=== PATIENT | female | born 1960 | race Caucasian/White ===

== ENCOUNTER 2024-11-01 17:13 | Emergency (ER) | payer BC, SELFPAY ==
--- NOTE | ~2024-11-01 | CT_ITS ---
CTA brain carotid Ordering provider: Christian Tompkins MD History: . headache with vision . Comparison: None. Technique: CT angiogram head and neck was performed following timed intravenous injection of contrast . Thin slice axial images and reformatted coronal images were obtained. Three dimensional reformatted images of the brain were also obtained using a [employer] workstation. DLP: 1001.7 mGy-cm FINDINGS: HEAD: --ANTERIOR AND MIDDLE CEREBRAL ARTERIES AND BRANCHES: Normal caliber and contour. --INTERNAL CAROTID ARTERIES: Normal caliber and contour. --BASILAR ARTERY AND BRANCHES: Normal caliber and contour. No atheromatous disease. --POSTERIOR CEREBRAL ARTERIES: Normal caliber and contour --POSTERIOR COMMUNICATING ARTERIES: Not well visualized likely related to congenital absence or small size. --ANEURYSM: None visualized. --BRAIN: Please refer to report of CT head performed the same day. --BONES AND SUPERFICIAL SOFT TISSUES: Please refer to report of CT head performed the same day. --PARANASAL SINUSES AND MASTOIDS: Please refer to report of CT head done the same day. NECK: --RIGHT CERVICAL CAROTID SYSTEM: Normal caliber and contour. Percent stenosis per NASCET criteria is 0% No carotid dissection. --LEFT CERVICAL CAROTID SYSTEM: Trace calcified atheromatous disease of the carotid bulb without sign ificant stenosis. Percent stenosis per NASCET criteria is 0% No carotid dissection. --VERTEBRAL ARTERIES: Normal caliber and contour. --VISUALIZED AORTIC ARCH AND BRANCHING VESSELS: Normal caliber and contour. No significant atheromato us disease. --SOFT TISSUES: Unremarkable. --CERVICAL SPINE: No significant degenerative disease IMPRESSION: 1. Normal CTA head and neck. Percent stenosis per NASCET criteria is 0%. 2. No large vessel occlusion. Reviewed, dictated and finalized at location A.
--- NOTE | ~2024-11-01 | XR_ITS ---
CHEST RADIOGRAPH CLINICAL HISTORY: cva? . COMPARISON: None available TECHNIQUE: Single portable view of the chest. FINDINGS The cardiomediastinal silhouette is unremarkable. The lungs are clear. IMPRESSION: No focal infiltrate or effusion. Reviewed, dictated and finalized at location A.
--- NOTE | ~2024-11-01 | CT_ITS ---
History: Code stroke PROCEDURE: CT head without contrast. COMPARISON: None TECHNIQUE: Axial imaging of the head performed from the skull base to the vertex without IV contrast. Sagittal a nd coronal reformations obtained. DLP: 681 mGy-cm FINDINGS: The ventricles are normal in size, shape and position. There is no mass, mass effect or midline shift. There is no abnormal extra-axial fluid collection or intracranial hemorrhage. Visualized paranasal sinuses are clear. The mastoid air cells are well aerated. No acute displaced fractures within the overlying cranium. Impression: No acute intracranial hemorrhage or suspicious mass effect. These findings were given to Dr. Tompkins at 5:34 PM on 11/01/2024 Reviewed, dictated and finalized at location A. Impression: No acute intracranial hemorrhage or suspicious mass effect. These findings were given to Dr. Tompkins at 5:34 PM on 11/01/2024
[2024-11-01 17:21] VITALS: BP 122/74; PULSE 59; RESP 16; TEMP 36.4; O2SAT 99
--- NOTE | 2024-11-01 17:24 | ECG_ITS ---
Test Date: 2024-11-01 18:55:11 Measurements Intervals [place] Rate: 54 P: 59 ME: 198 QRS: 33 QRSD: 94 T: 29 QT: 442 QTc: 422 Interpretive Statements SINUS BRADYCARDIA BORDERLINE ECG No previous ECG available for comparison Electronically Signed On 11-01-2024 19:45:46 CDT by Jared Tatum D.O.
--- NOTE | 2024-11-01 17:25 | ED_ITS ---
HPI - Neuro Symptoms/Deficit General Chief Complaint: Suspected CVA <Kev Yang APRN - Last Filed: 11/01/24 17:29> Stated Complaint: lkw 1400 blurry r eye vision RLQ, dizzy, R arm jelena <Kev Yang APRN - Last Filed: 11/01/24 17:29> Time Seen by Provider: 11/01/24 17:42 <Kev Yang APRN - Last Filed: 11/01/24 17:29> 64-year-old female presents to the ER complaining of blurry vision, headaches, right arm tingling, dizziness approximately last 2 hours. Patient's symptoms started as poorly vision in her right eye she reported as revision appeared to be like she was under water after that the vision improved and she developed a headache throughout her entire head. She also reports feeling dizzy and feels right arm tingling. Patient denies any arm weakness, slurred speech, facial droop, chest pain, breathing problems, nausea, vomiting, lightheadedness, loss of consciousness or any other symptoms. 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 Patient last on normal proximally 2 hours ago. Focused HPI: GENERAL: Well-appearing, well-nourished, and in no acute distress. HEAD: Normocephalic, atraumatic. EYES: Extraocular movements intact. Pupils PERRLA. CHEST: Clear to auscultation. ?No respiratory distress. HEART: Regular rate and rhythm.? NEURO: ?Alert and oriented x4. No obvious focal neurological abnormalities. No pronator drift, program host strength 5/5 equal bilaterally. No facial droop, speech is clear. No limb ataxia. Leg strength 5/5 equal bilaterally. Cranial nerve 2-12 grossly intact. Patient screened in triage and initial orders placed.? ?Additional care and disposition to be based upon?diagnostic testing and treatment. <Kev Yang APRN - Last Filed: 11/01/24 17:29> History of Present Illness HPI Narrative: Agree with HPI. <Christian Tompkins MD - Last Filed: 11/01/24 21:35> Related Data Allergies/Adverse Reactions: Allergies Allergy/AdvReac Type Severity Reaction Status Date / Time No Known Allergies Allergy Verified 11/01/24 19:47 <Kev Yang APRN - Last Filed: 11/01/24 17:29> Review of Systems 2 Review of Systems: All systems reviewed & are unremarkable except as noted in HPI and below <Christian Tompkins MD - Last Filed: 11/01/24 21:35> Constitutional: Constitutional: Reports no additional constitutional complaints <Christian Tompkins MD - Last Filed: 11/01/24 21:35> Cardiovascular: Cardiovascular: Reports no additional cardiovascular complaints <Christian Tompkins MD - Last Filed: 11/01/24 21:35> Respiratory: Respiratory: Reports no additional respiratory complaints < Christian Tompkins MD - Last Filed: 11/01/24 21:35> Neurologic: Reports system reviewed and no additional complaints, except as documented <Christian Tompkins MD - Last Filed: 11/01/24 21:35> PMFSH Past Medical History Medical History: Medical History (Updated 11/01/24 @ 21:35 by Christian Tompkins MD) Migraine headache <Kev Yang APRN - Last Filed: 11/01/24 17:29> Surgical History Surgical History: Surgical History (Updated 11/01/24 @ 21:32 by Christian Tompkins MD) No history of previous surgery <Kev Yang APRN - Last Filed: 11/01/24 17:29> Social History Social History: Social History (Updated 11/01/24 @ 21:32 by Christian Tompkins MD) Smoking status: Never smoker Alcohol intake: never <Kev Yang APRN - Last Filed: 11/01/24 17:29> Exam 2 Narrative: GENERAL: Well-appearing, well-nourished, and in no acute distress. HEAD: Normocephalic, atraumatic. EYES: PERRL and EOMI. ENT: Mucous membranes moist. CHEST: Clear to auscultation. No respiratory distress. HEART: Regular rate and rhythm. Normal peripheral pulses. ABDOMEN: Soft, nontender, nondistended. EXTREMITIES: Normal range of motion. No edema. SKIN: Warm, dry, no rash. NEURO: No focal deficits. No upper lower extremity drift. No limitation testing. Clear speech. Alert and oriented x3. PSYCH: Normal mood and affect. <Christian Tompkins MD - Last Filed: 11/01/24 21:35> Course Course Emergency Course: Patient felt of had a migraine headache that is resolved. Discussed with neurology. Recommend CTA. No aneurysm or large vessel occlusion. Appropriate for discharge home. Patient without any risk factors. <Christian Tompkins MD - Last Filed: 11/01/24 21:35> Vital Signs Vital signs: Vital Signs Temperature 97.6 F 11/01/24 17:21 Pulse Rate 59 L 11/01/24 17:21 Respiratory Rate 16 11/01/24 17:21 Blood Pressure 122/74 11/01/24 17:21 Pulse Oximetry 99 11/01/24 17:21 Temperature 97.6 F 11/01/24 17:21 Pulse Rate 57 L 11/01/24 19:44 Respiratory Rate 12 11/01/24 19:44 Blood Pressure 124/81 11/01/24 19:44 Pulse Oximetry 98 11/01/24 19:44 <Kev Yang APRN - Last Filed: 11/01/24 17:29> Vital Signs Temperature 97.6 F 11/01/24 17:21 Pulse Rate 59 L 11/01/24 17:21 Respiratory Rate 16 11/01/24 17:21 Blood Pressure 122/74 11/01/24 17:21 Pulse Oximetry 99 11/01/24 17:21 Temperature 97.6 F 11/01/24 17:21 Pulse Rate 57 L 11/01/24 19:44 Respiratory Rate 12 11/01/24 19:44 Blood Pressure 124/81 11/01/24 19:44 Pulse Oximetry 98 11/01/24 19:44 <Christian Tompkins MD - Last Filed: 11/01/24 21:35> MDM - Neuro Symptoms/Deficit Lab Data Result diagrams: 11/01/24 17:56 11/01/24 17:56 <Kev Yang APRN - Last Filed: 11/01/24 17:29> Labs: Lab Results 11/01/24 Range/Units 17:56 WBC 5.1 (4.5-10.0) K/mm3 RBC 4.37 (4.2-5.4) M/mm3 Hgb 13.4 (12.0-15.0) g/dL Hct 40.6 (37.0-47.0) % MCV 92.9 (80-100) fl MCH 30.7 (26-34) pg MCHC 33.0 (32-36) g/dl RDW 12.4 (11.5-14.5) % Plt Count 217 (150-375) k/mm3 MPV 9.6 (7.4-10.4) fl Immature Gran % (Auto) 0.2 (0-0.5) % Neut % (Auto) 50.4 (45.5-73.1) % Lymph % (Auto) 37.3 (18.3-44.2) % [place] % (Auto) 6.4 (2.6-8.5) % Eos % (Auto) 4.3 (0-4.4) % Baso % (Auto) 1.4 H (0.2-1.2) % Lymph # (Auto) 1.91 (0.9-3.2) K/mm3 [place] # (Auto) 0.3 (0.1-0.6) K/mm3 Eos # (Auto) 0.2 (0-0.3) K/mm3 Baso # (Auto) 0.1 (0.0-0.1) K/mm3 Abs Immat Gran (auto) 0.01 (0.00-0.031) K/mm3 Absolute Neuts (auto) 2.6 (1.3-6.7) K/mm3 Absolute Nucleated RBC 0.000 (0.0-0.012) K/mm3 Nucleated RBC % 0.0 (0.0-0.2) % PT 13.1 (11.1-14.7) Seconds INR 1.0 APTT 27.7 (22.3-36.8) Seconds Sodium 138 (137-145) mmol/L Potassium 3.9 (3.4-5.0) mmol/L Chloride 103 (98-107) mmol/L Carbon Dioxide 30 (22-30) mmol/L Anion Gap 5 (4-12) mmol/L BUN 16 (7-17) mg/dL Creatinine 0.94 (0.7-1.0) mg/dL Estim Creat Clear Calc Not Reportable Estimated GFR 60 (59 - ) Glucose 89 (65-110) mg/dL Calcium 9.1 (8.4-10.2) mg/dL Total Bilirubin 0.8 (0.2-1.3) mg/dL AST 32 (14-36) U/L ALT 18 (6-35) U/L Alkaline Phosphatase 57 (38-126) U/L Troponin I < 0.012 (0.000-0.034) ng/mL Total Protein 6.7 (6.3-8.2) g/dL Albumin 4.1 (3.5-5.1) g/dL <Kev Yang, REROLLING MACHINE OPERATOR - Last Filed: 11/01/24 17:29> Lab Results 11/01/24 Range/Units 17:56 WBC 5.1 (4.5-10.0) K/mm3 RBC 4.37 (4.2-5.4) M/mm3 Hgb 13.4 (12.0-15.0) g/dL Hct 40.6 (37.0-47.0) % MCV 92.9 (80-100) fl MCH 30.7 (26-34) pg MCHC 33.0 (32-36) g/dl RDW 12.4 (11.5-14.5) % Plt Count 217 (150-375) k/mm3 MPV 9.6 (7.4-10.4) fl Immature Gran % (Auto) 0.2 (0-0.5) % Neut % (Auto) 50.4 (45.5-73.1) % Lymph % (Auto) 37.3 (18.3-44.2) % [place] % (Auto) 6.4 (2.6-8.5) % Eos % (Auto) 4.3 (0-4.4) % Baso % (Auto) 1.4 H (0.2-1.2) % Lymph # (Auto) 1.91 (0.9-3.2) K/mm3 [place] # (Auto) 0.3 (0.1-0.6) K/mm3 Eos # (Auto) 0.2 (0-0.3) K/mm3 Baso # (Auto) 0.1 (0.0-0.1) K/mm3 Abs Immat Gran (auto) 0.01 (0.00-0.031) K/mm3 Absolute Neuts (auto) 2.6 (1.3-6.7) K/mm3 Absolute Nucleated RBC 0.000 (0.0-0.012) K/mm3 Nucleated RBC % 0.0 (0.0-0.2) % PT 13.1 (11.1-14.7) Seconds INR 1.0 APTT 27.7 (22.3-36.8) Seconds Sodium 138 (137-145) mmol/L Potassium 3.9 (3.4-5.0) mmol/L Chloride 103 (98-107) mmol/L Carbon Dioxide 30 (22-30) mmol/L Anion Gap 5 (4-12) mmol/L BUN 16 (7-17) mg/dL Creatinine 0.94 (0.7-1.0) mg/dL Estim Creat Clear Calc Not Reportable Estimated GFR 60 (59 - ) Glucose 89 (65-110) mg/dL Calcium 9.1 (8.4-10.2) mg/dL Total Bilirubin 0.8 (0.2-1.3) mg/dL AST 32 (14-36) U/L ALT 18 (6-35) U/L Alkaline Phosphatase 57 (38-126) U/L Troponin I < 0.012 (0.000-0.034) ng/mL Total Protein 6.7 (6.3-8.2) g/dL Albumin 4.1 (3.5-5.1) g/dL <Christian Tompkins MD - Last Filed: 11/01/24 21:35> Imaging Data Radiologist's impression: ITS Impressions Head CT 11/01/24 17:32 Impression: No acute intracranial hemorrhage or suspicious mass effect. These findings were given to Dr. Tompkins at 5:34 PM on 11/01/2024 Chest X-Ray 11/01/24 18:11 IMPRESSION: No focal infiltrate or effusion. Head/Neck CTA 11/01/24 21:09 IMPRESSION: 1. Normal CTA head and neck. Percent stenosis per NASCET criteria is 0%. 2. No large vessel occlusion. <Christian Tompkins MD - Last Filed: 11/01/24 21:35> ECG Data EKG #1: ECG completion date: 11/01/24 <Christian Tompkins MD - Last Filed: 11/01/24 21:35> ECG completion time: 18:55 <Christian Tompkins MD - Last Filed: 11/01/24 21:35> EKG Interpretation: bradycardia (54), sinus rhythm, no ST changes, normal QRS and normal QT <Christian Tmopkins MD - Last Filed: 11/01/24 21:35> Discharge Plan Discharge Clinical Impression: Migraine <Kev Yang APRN - Last Filed: 11/01/24 17:29> Patient Disposition: Home <Kev Yang APRN - Last Filed: 11/01/24 17:29> Condition: Stable <Kev Yang APRN - Last Filed: 11/01/24 17:29> Instructions: Migraine Headache (ED) <Kev Yang APRN - Last Filed: 11/01/24 17:29> Additional Instructions: Try to stay well hydrated at home. Please return to the emergency department if you develop worsening of your headache or a new headache which is severe, associated with vision changes, associated with neck stiffness or fever, or if it is different from any other headache that you have had before. Return to the emergency department if you develop numbness, weakness or tingling or problems with coordination, or if you develop severe nausea and vomiting and are unable to keep down fluids at home. <Kev Yang APRN - Last Filed: 11/01/24 17:29> Patient Language: Maltese <Kev Yang APRN - Last Filed: 11/01/24 17:29> Follow-up/Referrals: Thanh Valadez MD [Physician] - 1 Week UNKNOWN,DOCTOR [Primary Care Provider] - 1 Week <Kev Yang APRN - Last Filed: 11/01/24 17:29>
--- NOTE | 2024-11-01 17:26 | PC.NURSE ---
Pt. taken to CT by Odell KELLOGG as a code stroke.
[2024-11-01 18:08] LABS: Hematocrit 40.6 % (37.0-47.0); Hemoglobin 13.4 g/dL (12.0-15.0); Immature Granulocyte Percent A 0.2 % (0-0.5); Lymphocytes Absolute Auto 1.91 K/mm3 (0.9-3.2); Mean Corpuscular HGB Conc 33.0 g/dl (32-36); Mean Corpuscular Hemoglobin 30.7 pg (26-34); Mean Corpuscular Volume 92.9 fl (80-100); Nucleated Red Blood Cells Absolute Auto 0.000 K/mm3 (0.0-0.012); Nucleated Red Blood Cells Perc 0.0 % (0.0-0.2); Platelet Count Result 217 k/mm3 (150-375); Red Blood Count 4.37 M/mm3 (4.2-5.4); White Blood Count 5.1 K/mm3 (4.5-10.0)
[2024-11-01 18:13] LABS: Alanine Aminotransferase 18 U/L (6-35); Albumin Level 4.1 g/dL (3.5-5.1); Alkaline Phosphatase 57 U/L (38-126); Anion Gap 5 mmol/L (4-12); Aspartate Amino Transferase 32 U/L (14-36); Bilirubin,Total 0.8 mg/dL (0.2-1.3); Blood Urea Nitrogen 16 mg/dL (7-17); Calcium 9.1 mg/dL (8.4-10.2); Carbon Dioxide 30 mmol/L (22-30); Chloride 103 mmol/L (98-107); Estimated Glomerular Filt Rate 60; Glucose 89 mg/dL (65-110); INR 1.0; Potassium 3.9 mmol/L (3.4-5.0); Prothrombin Time 13.1 Seconds (11.1-14.7); Sodium 138 mmol/L (137-145); Total Protein 6.7 g/dL (6.3-8.2)
[2024-11-01 18:14] LABS: Partial Thromboplastin Time 27.7 Seconds (22.3-36.8)
[2024-11-01 18:25] LABS: Troponin I < 0.012 ng/mL (0.000-0.034)
--- OUTSIDE RECORDS SUMMARY | 2024-11-01 19:36 | XMS_ITS | Clinical Summary ---
Author Organization [facility] Address [address] [place] [address] Phone Care Team Providers Care Technical Project Coordinator Name Role Phone Janes Leigh MD Unavailable Janes Leigh MD Primary Care Provider [phone] Allergies No known active allergies Medications Betaine HCl 300 MG Tablet Take by mouth. Active Magnesium 400 MG Capsule Take 400 mg by mouth. Active Multivitamin-Mi nerals (multiple vitamins-minera ls) Tablet Take 1 Tablet by mouth daily. Active levothyroxine (SYNTHROID) 75 MCG Tablet Take 1 tablet by mouth once daily 90 Tablet 5 Active levothyroxine (SYNTHROID) 75 MCG Tablet Take 1 tablet by mouth once daily 90 Tablet 5 10/13/19 25 Discontinued Encounters Date Type Department Care Team Description 10/12/2024 Refill [facility] - Endocrinology - [place] [address] [place] [address] Janes Leigh MD Medication Refill from Last 3 Months Social History Tobacco Use Types Packs/Day Years Used Date Smoking Tobacco: Never Passive Smoke Exposure: Never Smokeless Tobacco: Never Tobacco Cessation:Counseling Given: No Alcohol Use Standard Drinks/Week Comments Not Currently 0 (1 standard drink = 0.6 oz pur e alcohol) Sexually Active Control Partners Comments Not Currently Male Comments Unknown Sex and Gender Information Value Date Recorded Sex Assigned at Not on file Legal Sex Female 2:36 PM CDT Gender Identity Not on file Sexual Orientation Not on file Last Filed Vital Signs Vital Sign Reading Time Taken Comments Blood Pressure 122/74 07/01/2024 8:26 AM CDT Pulse 78 07/01/2024 8:26 AM CDT Temperature 36.3 C (97.3 F) 07/01/2024 8:26 AM CDT Respiratory Rate 20 07/01/2024 8:26 AM CDT Oxygen Saturation 98% 07/01/2024 8:26 AM CDT Inhaled Oxygen Concentration - - Weight 65.8 kg (145 lb) 07/01/2024 8:26 AM CDT Height - - Body Mass Index - - Plan of Treatment Upcoming Encounters Date Type Department Care Team (Late st Contact Info) Description 01/06/2025 8:30 AM CDT Office Visit [facility] - Endocrinology [facility] [address] [place] [address] Janes Leigh MD [address] [address] Health Maintenance Due Date Last Done Comments Hepatitis C Virus (HCV) Screening 1960 Mammogram 1960 TdaP Immunization 1960 Pap Smear 02/15/1981 Cervical Cancer Screening (CCS) 02/15/1990 HPV/Cotest 02/15/1990 Cologuard 02/15/2005 Colonoscopy 02/15/2005 Colorectal Cancer Screening 02/15/2005 Immunochemical Fecal Occult Blood 02/15/2005 Pneumococcal Immunization (5 0+ years) (1 of 1 - PCV) 02/15/2010 10/29/2018 Zoster Immunization (1 of 2) 02/15/2010 SARS-COV-2 Immunization (1 - season) 2023 Influenza Immunization (#1) 2024 10/29/2018 Respiratory Syncytial Virus (RSV) Immunization (Adult) (1 - 1-dose 75+ series) 02/15/2035 Pneumococcal Immunization Combined Discontinued 2018 Hepatitis B Immunization Aged Out No longer eligible based on patient's age to complete this topic Human Papillomavirus (HPV) Immunization Aged Out No longer eligible b ased on patient's age to complete this topic Meningococcal Immunization (ACWY) Aged Out No longer eligible based on patient's age to complete this topic Rotavirus Immunization Aged Out No lo nger eligible based on patient's age to complete this topic Insurance [facility] Care Teams Technical Project Coordinator Relationship Specialty Start Date End Date Janes Leigh MD [address] [address] PCP - General Endocrinology 12/31/23 Janes Leigh MD [address] [phone] Consulting Physician Endocrinology 12/23/23
--- NOTE | 2024-11-01 19:37 | PC.NURSE ---
Assumed care of patient without receiving nurse report @ 1930.
[2024-11-01 19:38] VITALS: BP 124/81; PULSE 58; RESP 21; O2SAT 99
[2024-11-01 19:44] VITALS: BP 124/81; PULSE 57; RESP 12; O2SAT 98
[2024-11-01 22:21] VITALS: BP 108/64; PULSE 70; RESP 16; O2SAT 98
== END 2024-11-01 22:21 | disposition home or self-care (01) ==
PROVIDERS: Emergency Provider Emergency Medicine
DX: G43.909 Migraine, unspecified, not intractable, without status migrainosus (principal); R00.1 Bradycardia, unspecified; E06.3 Autoimmune thyroiditis
CPT/HCPCS: 36415; 70450; 70496; 70498; 71045; 80053; 84484; 85025; 85610; 85730; 93005; 99284; Q9967

== ENCOUNTER 2025-03-03 08:34 | Outpatient (CLI) | payer MEDICARE, SELFPAY ==
--- OUTSIDE RECORDS SUMMARY | 2025-03-03 08:52 | XMS_ITS | Patient Health Record ---
Author Organization [facility] Address [address] [place] [address] [address] [place], [place] [id number] Care Team Providers Care Post Secondary Professional Name Role Phone WAYNE PHAM Primary Care Provider Allergies No Known Allergies Reason For Referral No Information Medications Medication SIG (Take, Route, Frequency, Duration) Notes Start Date End Date Status Xanax 0.25 MG 1 tablet Orally twic e a day as needed (prn); Duration: 15 days 11/06/2017 Not-Taking Mucinex 600 MG 1 tablet as needed Orally every 12 hrs Not-Taking Antihistamine Active Premarin 1.25 MG 1 tablet Orally Once a day; Duration: 30 day(s) Not-Taking Amoxicillin 875 MG 1 tablet Orally ever y 12 hrs; Duration: 09/22/2017 Not-Taking ProAir HFA 108 (90 Base) MCG/ACT 2 puffs as needed Inhalation four times a day (qid) as needed (prn); Duration: 30 days 07/14/2020 Active FLUoxetine HCl 10 MG 1 capsule Orally On ce a day; Duration: 90 days 12/24/2018 Not-Taking Levothyroxine Sodium 88 MCG TAKE 1 TABLET BY MOUTH EVERY DAY IN THE MORNING ON AN EMPTY STOMACH; Duration: 22 Not-Taking Pristiq 50 MG 1 tablet Orally Once a day; Duration: 30 day(s) Not-Taking Immunizations Vaccine Route Administration Date Status Comme nts FLU VACCINE (6 months-64 years) Unknown 03/11/2011 Administered FLU VACCINE (18-64) FLUBLOK Unknown 02/15/2012 Administered FLU VACCINE (18-64) FLUBLOK ID Intradermal 02/29/2016 Administered FLU VACCINE (18-64) FLUBLOK IM Intramuscular 01/30/2018 Administered FLU VACCINE (18-64) FLUBLOK IM Intramuscular 01/28/2019 Administered HERPES ZOSTER-SHINGRIX IM Intramuscular 01/28/2019 Administered HERPES ZOSTER-SHINGRIX IM Intramuscular 05/31/2019 Administered PNEUMOCOCCAL- PNEUMOVAX 23 IM Intramuscular 10/06/2018 Administered Tdap - ADACEL (10-64) Unknown 02/15/2012 Administered Influenza Vaccine Unknown 02/17/2010 Administered Influenza Vaccine <<MigratedImmuniz ation>> Social History EXERCISE ASSESSMENT- Question Answer Notes -Assessment Performed: Yes Problems Problem Type SNOMED Code ICD Code Onset Dates Problem Status W/U Status Risk Notes Problem Mixed anxiety and depressive disorder (926301406) Anxiety and depression (F41.8) Active confirmed Problem Irritable bowel syndrome (05172192) IBS (irritable colon syndrome) (K58.9) Active confirmed Problem Hypothyroidism (32789835) Hypothyroidism, unspecified (E03.9) Active confirmed Problem Diverticulitis of colon (710248607) Diverticulitis of intestine without perforation or abscess without bleeding, unspecified part of intestinal tract (K57.92) Active confirmed Problem Anxiety state (265146122) Acute anxiety (F41.9) Active confirmed Plan Of Treatment Pending Test Test Name Order Date X ray : CHEST PA LATERAL 07/14/2020 Insurance Providers Payer Name Payer Address Payer Phone Subscriber Number Group Number Insured Name Patient Relationship to Insured Coverage Start Date Coverage End Date [employer] [address] [place] [phone] [id number] TREMAINE MACEDO Self - patient is the insured Medical (General) History Medical History History ICD Code Depressive disorder, not elsewhere class ified Acute UTI Unspecified hypothyroidism
--- OUTSIDE RECORDS SUMMARY | 2025-03-03 08:53 | XMS_ITS | Clinical Summary ---
Author Organization [facility] Address [address] [place] [address] Phone Care Team Providers Care Driver/Sales Workers Name Role Phone Jnaes Leigh MD Unavailable Janes Leigh MD Primary Care Provider [phone] Allergies No known active allergies Medications Betaine HCl 300 MG Tablet Take by mouth. Active Magnesium 400 MG Capsule Take 400 mg by mouth. Active Multivitamin-Min erals (multiple vitamins-mineral s) Tablet Take 1 Tablet by mouth daily. Active levothyroxine (SYNTHROID) 75 MCG Tablet Take 1 tablet by mouth once daily 90 Tablet 01/10/2025 Active Encounters Date Type Department Care Team Description 03/01/2025 Transcribe Orders [facility] Central Scheduling [address] [place] [address] Ayanna Linda, EXECUTIVE SERVICES ADMINISTRATOR, [employer] Encounter for screening mammogram for malignant neoplasm of breast (Primary Dx); Asymptomatic menopausal state 01/08/2025 Refill [facility] Endocrinology [facility] [address] [place] [address] Janes Leigh MD Medication Refill 01/07/2025 Results Follow-Up [facility] Endocrinology - [place] [address] [place] [address] Janes Leigh MD THYROID STIMULATING HORMONE (TSH), THYROXINE (T4) FREE, TRIIODOTHYRININE (T3) TOTAL 01/06/2025 8:30 AM CDT Office Visit [facility] - Endocrinology [facility] [address] [place] [address] Janes Leigh MD Hypothyroidism due to Soo thyroiditis (Primary Dx) Discharge Disposition: Discharged to home or Selfcare 01/06/2025 Travel from Last 3 Months Social History Tobacco [...] Sign Reading Time Taken Comments Blood Pressure 124/68 01/06/2025 8:29 AM CDT Pulse 86 01/06/2025 8:29 AM CDT Temperature 36.3 C (97.3 F) 01/06/2025 8:29 AM CDT Respiratory Rate 22 01/06/2025 8:29 AM CDT Oxygen Saturation 96% 01/06/2025 8:29 AM CDT Inhaled Oxygen Concentration - - Weight 65.9 kg (145 lb 3.2 oz) 01/06/2025 8:29 A M CDT Height - - Body Mass Index - - Plan of Treatment Upcoming Encounters Date Type Department Care Team (Late st Contact Info) Description 03/08/2025 1:15 PM HOMEBOUND TEACHER Appointment [facility] Mammography [address] [place] [phone] Ayanna Linda, EXECUTIVE SERVICES ADMINISTRATOR, [employer] [address] [place] [address] Discharge Disposition: Discharged to home or Selfcare 03/08/2025 1:30 PM HOMEBOUND TEACHER Appointment [facility] Mammography [address] [place] [address] Ayanna Linda, EXECUTIVE SERVICES ADMINISTRATOR, [employer] [address] [place] [address] Discharge Disposition: Discharged to home or Selfcare 04/12/2025 8:30 AM HOMEBOUND TEACHER Office Visit [facility] - Endocrinology - [place] [address] [place] [address] Janes Leigh MD [address] [phone] Health Maintenance Due Date Last Done Comments DEXA Bone Density 1960 Hepatitis C Virus (HCV) Screening 1960 Mammogram 1960 Pap Smear 02/15/1981 Cervical Cancer Screening (CCS) 02/15/1990 HPV/Cotest 02/15/1990 Cologuard 02/15/2005 Colonoscopy 02/15/2005 Colorectal Cancer Screening 02/15/2005 Immunochemical Fecal Occult Blood 02/15/2005 Pneumococcal Immunization (5 0+ years) (1 of 1 - PCV) 02/15/2010 10/29/2018 Zoster Immunization (1 of 2) 02/15/2010 Influenza Immunization (#1) 2024 10/29/2018 SARS-COV-2 Immunization (1 - season) 2024 Welcome to Medicare (IPPE) [id number] 01/29/2025 Respiratory Syncytial Virus (RSV) Immunization (Adult) (1 - 1-dose 75+ series) 02/15/2035 Pneumococcal Immunization Combined Discontinued 2018 TdaP Immunization Completed 01/17/2025 Hepatitis B Immunization Aged Out No longer [...] on patient's age to complete this topic Procedures Procedure Name Priority Date/Time Associated Diagnosis Comments TRIIODOTHYRININE (T3) TOTAL Routine 01/06/2025 9:12 AM CDT Hypothyroidism due to Soo thyroiditis THYROXINE (T4) FREE Routine 01/06/2025 9 :12 AM CDT Hypothyroidism due to Soo thyroiditis THYROID STIMULATING HORMONE (TSH) Routine 01/06/2025 9:12 AM CDT Hypothyroidism due to Soo thyroiditis from Last 3 Months Results * THYROXINE (T4) FREE (01/06/2025 9:12 AM CDT) T4 FREE 1.1 0.7 - 1.9 ng/dL 01/06/2025 10:56 AM CDT [facility] Blood Venipuncture / Unknown 01/06/2025 9:12 AM CDT 01/06/2025 10:12 AM CDT us Janes Leigh MD CHEMISTRY ORDERABLES Final Resul t Performing Organization Address City/[facility]/ZIP Co de Phone Number [facility] [address] [place] [address] * THYROID STIMULATING HORMONE (TSH) (01/06/2025 9:12 AM CDT) TSH 2.233 0.300 - 5.000 mIU/L 01/06/2025 10:56 AM CDT [facility] Blood Venipuncture / Unknown 01/06/2025 9:12 AM CDT 01/06/2025 10:12 AM CDT us Janes Leigh MD CHEMISTRY ORDERABLES Final Resul t [facility] [address] [place] [address] * TRIIODOTHYRININE (T3) TOTAL (01/06/2025 9:12 AM CDT) T3 65 40 - 193 ng/dL 01/06/2025 4:05 PM CDT [facility] Blood Venipuncture / Unknown 01/06/2025 9:12 AM CDT 01/06/2025 10:12 AM CDT us Janes Leigh MD CHEMISTRY ORDERABLES Final Resul t [facility] [address] [place] [address], [place] from Last 3 Months Insurance MEDICARE C [employer] Care Teams Driver/Sales Workers Relationship Specialty Start Date End Date Janes Leigh MD [address] [phone] PCP - General Endocrinology 12/31/23 Janes Leigh MD [id number] [address] Consulting Physician Endocrinology 12/23/23
--- OUTSIDE RECORDS SUMMARY | 2025-03-03 08:53 | XMS_ITS | Clinical Summary ---
Author Organization [facility] Address [facility] [place] [address] Care Team Providers Care Rail Engineer Name Role Phone None, Provider MD Primary Care Provider Unavaila ble Allergies No known active allergies Medications levothyroxine (SYNTHROID) 75 MCG tablet Take 1 tablet (75 mcg total) by mouth daily. 10/12/2024 Active Active Problems Problem Noted Date Diagnosed Date Acquired hypothyroidism 01/17/2025 Migraine headache 01/17/2025 Encounters Date Type Department Care Team Description 01/27/2025 3:40 PM CDT Office Visit [address] [place] [id number] Amanda Gomes, Follow Up (1w; PT States the right leg with stiches is doing fine but believes theres infection in the left one, redness, swollen, tender to touch, warmth. Started Friday //Pt denies fever or chills) 01/27/2025 Travel 01/17/2025 4:00 PM CDT Office Visit [address] [place] [id number] Jackelin France APRN Hall, Tracy L, DO Laceration (Bel fell in her yard this afternoon and cut her right knee. She thinks she needs stitches. She is unsure of when her last Tetanus shot was. There is nothing in her chart./-nkw) 01/17/2025 Scan [facility] Scanned, Doc [facility] 01/17/2025 Telephone [facility] DEFAULT None, ProviderMD Error 01/17/2025 Travel 12/02/2024 12:20 PM CDT Office Visit [address] [place], [place] [address] Naila Ness V, FNPS-BC Rash (Rash on back, raised and red with painful/tingling sensation. She noticed it Friday and it has spread since. She is concerned for shingles. She has not had a shingles vaccine./-nkw) 12/02/2024 Travel from Last 3 Months Immunizations Immunization Administration Dates Next Due Tdap (Adacel) 01/17/2025 Tdap (Generic) 01/17/2025 Social History Tobacco Use Types Packs/Day Years Used Date Smoking Tobacco: Never Smokeless Tobacco: Never Tobacco Cessation:Counseling Given: No Alcohol Use Standard Drinks/Week Comments Not Currently 0 (1 standard drink = 0.6 oz pur e alcohol) PHQ-2 Answer Date Recorded Patient Health Questionnaire-2 Score 0 12/02/2024 Comments No Sex and Gender Information Value Date Recorded Sex Assigned at Female 12/02/2024 12:08 PM CDT Legal Sex Female 10:33 AM CDT Gender Identity Female 12/02/2024 12:08 PM CDT Sexual Orientation Not on file Last Filed Vital Signs Vital Sign Reading Time Taken Comments Blood Pressure 91/56 01/27/2025 3:45 PM CDT Pulse 65 01/27/2025 3:45 PM CDT Temperature 36.6 C (97.9 F) 01/27/2025 3:45 PM CDT Respiratory Rate 14 01/27/2025 3:45 PM CDT Oxygen Saturation 97% 01/27/2025 3:45 PM CDT Inhaled Oxygen Concentration - - Weight 64.9 kg (143 lb) 01/27/2025 3:45 PM CDT Height 162.6 cm (5' 4) 01/27/2025 3:45 PM CDT Body Mass Index 24.55 01/27/2025 3:45 PM CDT Plan of Treatment Health Maintenance Due Date Last Done Comments Colorectal Cancer Screening Colonoscopy (10 Years) 1960 Hepatitis C 02/15/1978 Mammogram Screening 2000 Pneumococcal Vaccine: 50+ Years (1 of 1 - PCV) 02/15/2010 Zoster Vaccines (1 of 2) 02/15/2010 COVID-19 Vaccine (1 - 2024-2 6 season) 2024 Influenza Adult (#1) 2024 Dexa Scan (General) 02/15/2025 DTaP, Tdap and Td Vaccines ( 3 - Td or Tdap) 01/17/2035 01/17/2025, 01/17/2025 RSV Immunization or 60+ Years (1 - 1-dose 75+ series) 02/15/2035 PHQ-2 (Physician [place]) Completed 12/02/2024 Hepatitis A Vaccines Aged Out No long er eligible based on patient's age to complete this topic Meningococcal B Vaccine Aged Out No l onger eligible based on patient's age to complete this topic Meningococcal Vaccine Aged Out No bernadine lashay eligible based on patient's age to complete this topic RSV Immunizations Under 20 Months Aged Out No longer eligible b ased on patient's age to complete this topic Insurance [facility] Care Teams Rail Engineer Relationship Specialty Start Date End Date None, Provider, MD PCP - General UNKNOWN PHYSICIAN SPECIALTY 12/02/24
[2025-03-03 14:24] LABS: Hematocrit 44.9 % (37.0-47.0); Hemoglobin 14.4 g/dL (12.0-15.0); Immature Granulocyte Percent A 0.3 % (0-0.5); Lymphocytes Absolute Auto 1.39 K/mm3 (0.9-3.2); Mean Corpuscular HGB Conc 32.1 g/dl (32-36); Mean Corpuscular Hemoglobin 30.0 pg (26-34); Mean Corpuscular Volume 93.5 fl (80-100); Nucleated Red Blood Cells Absolute Auto 0.000 K/mm3 (0.0-0.012); Nucleated Red Blood Cells Perc 0.0 % (0.0-0.2); Platelet Count Result 238 k/mm3 (150-375); Red Blood Count 4.80 M/mm3 (4.2-5.4); White Blood Count 3.9 K/mm3 (4.5-10.0)
[2025-03-03 14:36] LABS: Alanine Aminotransferase 16 U/L (6-35); Albumin Level 4.1 g/dL (3.5-5.1); Alkaline Phosphatase 61 U/L (38-126); Anion Gap 1 mmol/L (4-12); Aspartate Amino Transferase 46 U/L (14-36); Bilirubin,Total 0.9 mg/dL (0.2-1.3); Blood Urea Nitrogen 14 mg/dL (7-17); Calcium 9.4 mg/dL (8.4-10.2); Carbon Dioxide 32 mmol/L (22-30); Chloride 100 mmol/L (98-107); Cholesterol 253 mg/dL (0-200); Estimated Glomerular Filt Rate > 60; Glucose 68 mg/dL (65-110); HDL Direct 70 mg/dL; Potassium 4.5 mmol/L (3.4-5.0); Sodium 133 mmol/L (137-145); Total Protein 6.9 g/dL (6.3-8.2); Triglycerides 52 mg/dL (<150)
[2025-03-03 15:09] LABS: Hemoglobin A1C 5.4 % (<5.7)
== END 2025-03-03 08:35 | disposition home or self-care (01) ==
LOC: ANHGOSHLAB 08:35
PROVIDERS: PCP Clinical Nurse Specialist; Visit Provider Clinical Nurse Specialist
DX: Z13.29 Encounter for screening for other suspected endocrine disorder (principal); Z13.220 Encounter for screening for lipoid disorders; E03.9 Hypothyroidism, unspecified; R73.01 Impaired fasting glucose
CPT/HCPCS: 36415; 80053; 80061; 82306; 83036; 85025